=== PATIENT | female | born 1965 | race Caucasian/White ===

== ENCOUNTER 2022-10-28 06:49 | Emergency (ER) | payer SELFPAY ==
--- NOTE | 2022-10-28 07:43 | ERPHSYRPT ---
- History of Present Illness Time Seen by Provider: 10/28/22 07:20 Historian: patient, family Patient Subjective Stated Complaint: Pt states "when I got up to pee at about 0300 it started and feels like someone shoved a metal poker up my butt. I ate something to keep from throwing up". Reports having stones in the past, usually passes on own, not needed ER intervention in several years. Hospitalized once but ended up passing. Triage Nursing Assessment: Reports having stones in the past, usually passes on own, not needed ER intervention in several years. Hospitalized once but ended up passing. ambulated to room 6 independently after denying need to urinate for lab sample. resp even and unlabored, alert and oriented times three and able to speak in complete sentences. restless with frequent position changes to reduce pain Physician History: This is an obese 57-year-old white female who presents with sudden onset of right flank pain that is sharp and stabbing that radiates down into her right groin. Patient has a history of nephrolithiasis and ureterolithiasis in the distant past. She denies chest pain. She denies shortness of breath. She has no significant abdominal pain. Patient presents to the emergency department room pacing back and forth holding her right flank. She has not had any vomiting or diarrhea symptoms. She has not had a fever. Patient is not on any anticoagulation therapy. She does not have a local urologist Timing/Duration: today Activities at Onset: none Quality: sharpness, stabbing Abdominal Pain Onset Location: flank (Right) Pain Radiation: groin (Right) Severity of Pain-Max: moderate Severity of Pain-Current: moderate Modifying Factors: Improves With: nothing Associated Symptoms: denies symptoms Previous symptoms: same symptoms as today (In the distant past), no recent treatment Allergies/Adverse Reactions: levofloxacin [From Levaquin] Allergy (Verified 10/28/22 07:16) Sulfa (Sulfonamide Antibiotics) Allergy (Verified 10/28/22 07:16) Home Medications: No Reportable Medications [No Reported Medications] 10/28/22 [History] Hx Tetanus, Diphtheria Vaccination/Date Given: No (2015) Hx Influenza Vaccination/Date Given: Yes Hx Pneumococcal Vaccination/Date Given: No Immunizations Up to Date: Yes Travel Risk - International Travel Have you traveled outside of the country in past 3 weeks: No - Coronavirus Screening Are you exhibiting any of the following symptoms?: No Close contact with a COVID-19 positive Pt in past 14-21 Days: No - Vaccine Status Have you recieved a Covid-19 vaccination: Yes Transition Rn: [facility] - Vaccination Dates Date of 2cond Vaccination (if applicable): 2021 - Review of Systems Constitutional: No Symptoms Eyes: No Symptoms Ears, Nose, & Throat: No Symptoms Respiratory: No Symptoms Cardiac: No Symptoms Abdominal/Gastrointestinal: No Symptoms Genitourinary Symptoms: Flank Pain (Right) Musculoskeletal: No Symptoms Skin: No Symptoms Neurological: No Symptoms Psychological: No Symptoms Endocrine: No Symptoms Hematologic/Lymphatic: No Symptoms Immunological/Allergic: No Symptoms All Other Systems: Reviewed and Negative - Past Medical History Pertinent Past Medical History: Yes Neurological History: No Pertinent History ENT History: No Pertinent History Cardiac History: Other Respiratory History: Other Endocrine Medical History: No Pertinent History Musculoskeletal History: No Pertinent History GI Medical History: No Pertinent History History: Other Psycho-Social History: No Pertinent History Female Reproductive Disorders: No Pertinent History Other Medical History: histoplasmosis of lung, 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 right foot surgery for toe "locking" - Social History Smoking Status: Never smoker Exposure to second hand smoke: No Drug Use: none Patient Lives Alone: No - Nursing Vital Signs Nursing Vital Signs: Initial Vital Signs Temperature 96.9 F 10/28/22 07:02 Pulse Rate 87 10/28/22 07:02 Respiratory Rate 22 10/28/22 07:02 Blood Pressure 126/104 10/28/22 07:02 O2 Sat by Pulse Oximetry 100 10/28/22 07:02 Pain Scale Pain Intensity 3 - Physical Exam General Appearance: mild distress, alert, anxiety, obese Eye Exam: PERRL/EOMI, eyes nml inspection Ears, Nose, Throat Exam: normal ENT inspection, moist mucous membranes Neck Exam: normal inspection, non-tender, supple, full range of motion Respiratory Exam: normal breath sounds, lungs clear, airway intact, No chest tenderness, No respiratory distress Cardiovascular Exam: regular rate/rhythm, normal heart sounds, normal peripheral pulses Gastrointestinal/Abdomen Exam: soft, normal bowel sounds, No tenderness Pelvic Exam: not done Rectal Exam: not done Back Exam: normal inspection, normal range of motion, CVA tenderness (Right), No vertebral tenderness Extremity Exam: normal inspection, normal range of motion, pelvis stable Neurologic Exam: alert, oriented x 3, cooperative, 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, normal mood/affect, nml cerebellar function, nml station & gait, sensation nml Skin Exam: normal color, warm, dry Lymphatic Exam: No adenopathy SpO2 Interpretation: normal SpO2: 100 O2 Delivery: Room Air - Course Nursing assessment & vital signs reviewed: Yes Ordered Tests: Active Orders 24 hr Category Date Time Status IV Insertion STAT Care 10/28/22 07:44 Active ABDOMEN AND PELVIS W/0 CONTRAS [CT] Stat Exams 10/28/22 07:44 Completed AMYLASE Stat Lab 10/28/22 07:48 Completed CBC W DIFF Stat Lab 10/28/22 07:48 Completed CMP Stat Lab 10/28/22 07:48 Completed LIPASE Stat Lab 10/28/22 07:48 Completed UA W/RFX UR CULTURE Stat Lab 10/28/22 07:48 Completed Medication Summary Discontinued Medications Generic Name Dose Route Start Last Admin Trade Name Freq PRN Reason Stop Dose Admin Hydromorphone HCl 1 mg 10/28/22 07:44 10/28/22 07:57 Hydromorphone 1 Mg/1ml Inj 1 Mg/Ml Syringe IV 10/28/22 07:45 1 mg STAT ONE Administration Hydromorphone HCl Confirm 10/28/22 07:51 Hydromorphone 1 Mg/1ml Inj 1 Mg/Ml Syringe Administered 10/28/22 07:52 Dose 1 mg .ROUTE .STK-MED ONE Sodium Chloride 1,000 mls @ 999 mls/hr 10/28/22 07:44 10/28/22 08:53 Sodium Chloride 0.9% 1000 Ml IV 10/28/22 08:44 Infused .Q1H1M STA Infusion Sodium Chloride Confirm 10/28/22 07:51 Sodium Chloride 0.9% 1000 Ml Administered 10/28/22 07:52 Dose 1,000 mls @ ud .ROUTE .STK-MED ONE Ketorolac Tromethamine 30 mg 10/28/22 07:44 10/28/22 07:56 Ketorolac Tromethamine 30 Mg/Ml Inj IV 10/28/22 07:45 30 mg STAT ONE Administration Ketorolac Tromethamine Confirm 10/28/22 07:51 Ketorolac Tromethamine 30 Mg/Ml Inj Administered 10/28/22 07:52 Dose 30 mg .ROUTE .STK-MED ONE Ondansetron HCl 4 mg 10/28/22 07:44 10/28/22 07:56 Ondansetron Hcl 4 Mg/2 Ml Vial IV 10/28/22 07:45 4 mg STAT ONE Administration Ondansetron HCl Confirm 10/28/22 07:50 Ondansetron Hcl 4 Mg/2 Ml Vial Administered 10/28/22 07:51 Dose 4 mg .ROUTE .STK-MED ONE Lab/Rad Data: Laboratory Result Diagrams 10/28/22 07:48 10/28/22 07:48 Laboratory Results 10/28/22 10/28/22 10/28/22 Range/Units 07:48 07:48 07:48 WBC 7.4 (4.0-10.5) x10^3/uL RBC 4.80 (4.1-5.4) x10^6/uL Hgb 13.6 (12.0-16.0) g/dL Hct 42.7 (35-47) % MCV 89.0 (78-100) fL MCH 28.3 (26-32) pg MCHC 31.9 L (32-36) g/dL RDW 13.3 (11.5-14.0) % Plt Count 316 (150-450) x10^3/uL MPV 11.0 (7.5-11.0) fL Gran % 58.3 (36.0-66.0) % Immature Gran % (Auto) 0.1 (0.00-0.4) % Nucleat RBC Rel Count 0.0 (0.00-0.1) % Eos # (Auto) 0.13 (0-0.5) x10^3/uL Immature Gran # (Auto) 0.01 (0.00-0.03) x10^3u/L Absolute Lymphs (auto) 2.22 (1.0-4.6) x10^3/uL Absolute Monos (auto) 0.63 (0.0-1.3) x10^3/uL Absolute Nucleated RBC 0.00 (0.00-0.01) x10^3u/L Lymphocytes % 30.1 (24.0-44.0) % Monocytes % 8.5 (0.0-12.0) % Eosinophils % 1.8 (0.00-5.0) % Basophils % 1.2 (0.0-0.4) % Absolute Granulocytes 4.30 (1.4-6.9) x10^3/uL Basophils # 0.09 (0-0.4) x10^3/uL Sodium 142 (137-145) mmol/L Potassium 3.8 (3.5-5.1) mmol/L Chloride 102 (98-107) mmol/L Carbon Dioxide 30 (22-30) mmol/L Anion Gap 14.0 (5-15) MEQ/L BUN 16 (7-17) mg/dL Creatinine 0.85 (0.52-1.04) mg/dL Estimated GFR > 60.0 ML/MIN Glucose 97 (74-106) mg/dL Calcium 9.4 (8.4-10.2) mg/dL Total Bilirubin 0.40 (0.2-1.3) mg/dL AST 29 (14-36) U/L ALT 27 (0-35) U/L Alkaline Phosphatase 107 (38-126) U/L Serum Total Protein 7.5 (6.3-8.2) g/dL Albumin 4.4 (3.5-5.0) g/dL Amylase 83 (30-110) U/L Lipase 86 (23-300) U/L Urine Color Yellow (Yellow) Urine Appearance Clear (Clear) Urine pH 8.0 (4.6-8.0) Ur Specific Prim 1.010 (1.005-1.030) Urine Protein Negative (Negative) Urine Glucose (UA) Negative (Negative) mg/dL Urine Ketones Negative (Negative) Urine Blood Negative (Negative) Urine Nitrite Negative (Negative) Urine Bilirubin Negative (Negative) Urine Urobilinogen 0.2 (0.2) mg/dL Ur Leukocyte Esterase Negative (Negative) U Hyaline Cast (Auto) NONE SEEN (0-2) /LPF Urine Microscopic RBC 0-2 (0-5) /HPF Urine Microscopic WBC 0-2 (0-5) /HPF Ur Epithelial Cells None Seen (None Seen) /HPF Urine Bacteria None Seen (None Seen) /HPF Urine Culture Reflexed NO (NO) - Progress Progress: improved, re-examined Progress Note: 10/28/22 09:04 CT scan of the abdomen pelvis without contrast shows a 4 mm urinary bladder calculus adjacent to the right UVJ. There is mild right hydronephrosis and mild right hydroureter. This is consistent with recent passage of a ureteral calculus on the right side. This patient's medical issue is of moderate complexity. The level of complexity and work-up is based on review of the patient's past medical history, medi cation list, and drug allergy list as well as a history of present illness and physical findings on examination. Work-up included placement of intravenous line, infusion of normal saline solution, antiemetic, narcotic Dilaudid, intravenous Toradol. Symptoms significantly improved. We also obtained a urinalysis, CBC, CMP, amylase and lipase level and a CAT scan of the abdomen pelvis without contrast. I reviewed the results of the studies. The results of the study show a recently passed urinary bladder calculus. The discharge plan was discussed with the patient and her spouse. This includes oral liquid intake, use of Tylenol and ibuprofen for pain control. Counseled pt/family regarding: lab results, diagnosis, need for follow-up, rad results Medical Desision Making - Independent Historian Additional History obtained from: Spouse - Discussion of managment Reviewed:: Test results Agreed on:: Treatment plan, need for follow-up - Diagnostic Testing Diagnostic test were ordered, analyzed, and reviewed by me: Yes Radiological Interpretation: Reviewed by me - Departure Departure Disposition: Home Clinical Impression: Urinary bladder calculus Condition: Stable Critical Care Time: No Referrals: DOCTOR,NO FAMILY [Primary Care Provider] - Follow up/PCP as directed Additional Instructions: Drink plenty of clear liquids. Use Tylenol and ibuprofen for pain and fever control. Follow-up with your primary care provider for further evaluation management.
[2022-10-28] MEDS ORDERED: Sodium Chloride 0.9% 1000 ML 1,000 ML IV STA (07:44)
[2022-10-28] MEDS ORDERED: TORAdol 30 mg Injection IV ONE (07:44)
[2022-10-28] MEDS ORDERED: Hydromorphone 1 mg/ml Injection IV ONE (07:44)
[2022-10-28] MEDS ORDERED: Zofran 4 MG/2 ML VIAL IV ONE (07:44)
[2022-10-28] MEDS ORDERED: Zofran 4 MG/2 ML VIAL ONE (07:50)
[2022-10-28] MEDS ORDERED: Sodium Chloride 0.9% 1000 ML 1,000 ML ONE (07:51)
[2022-10-28] MEDS ORDERED: TORAdol 30 mg Injection ONE (07:51)
[2022-10-28] MEDS ORDERED: Hydromorphone 1 mg/ml Injection ONE (07:51)
[2022-10-28 08:06] LABS: BASOPHIL % 1.2 % (0.0-0.4); Basophil (Absolute #) 0.09 x10^3/uL (0-0.4); Eosinophil % 1.8 % (0.00-5.0); Eosinophil (Absolute #) 0.13 x10^3/uL (0-0.5); Hematocrit 42.7 % (35-47); Hemoglobin 13.6 g/dL (12.0-16.0); IMMATURE GRAN # 0.01 x10^3u/L (0.00-0.03); IMMATURE GRAN % 0.1 % (0.00-0.4); Lymphocyte (Absolute #) 2.22 x10^3/uL (1.0-4.6); Lymphocytes % 30.1 % (24.0-44.0); Mean Corpuscular Hemoglobin 28.3 pg (26-32); Mean Corpuscular Hgb Concent. 31.9 g/dL (32-36); Monocyte (Absolute #) 0.63 x10^3/uL (0.0-1.3); Monocytes % 8.5 % (0.0-12.0); Neutrophil % 58.3 % (36.0-66.0); Platelet Count 316 x10^3/uL (150-450); Red Cell Distribution Width 13.3 % (11.5-14.0); White Blood Count 7.4 x10^3/uL (4.0-10.5)
[2022-10-28 08:11] LABS: Appearance Clear (Clear); Bacteria None Seen /HPF (None Seen); Bilirubin Negative (Negative); Blood Negative (Negative); Epithelial Cells None Seen /HPF (None Seen); Glucose, Urine Negative (Negative); Hyaline Casts NONE SEEN /LPF (0-2); Ketones Negative (Negative); Leukocyte Esterase Negative (Negative); Nitrite Negative (Negative); Protein,Urine Dip Negative (Negative); RBC 0-2 /HPF (0-5); Urobilinogen 0.2 mg/dL (0.2); WBC 0-2 /HPF (0-5)
[2022-10-28 08:12] LABS: ADD URINE CULTURE? NO (NO)
[2022-10-28 08:27] LABS: ALBUMIN 4.4 g/dL (3.5-5.0); ALKALINE PHOSPHATASE 107 U/L (38-126); AMYLASE 83 U/L (30-110); BLOOD UREA NITROGEN 16 mg/dL (7-17); CHLORIDE 102 mmol/L (98-107); Calcium 9.4 mg/dL (8.4-10.2); Carbon Dioxide 30 mmol/L (22-30); Creatinine 1 0.85 mg/dL (0.52-1.04); EST GLOMERULAR FILTRATION RATE > 60.0 ML/MIN; Glucose 97 mg/dL (74-106); LIPASE 86 U/L (23-300); Potassium 3.8 mmol/L (3.5-5.1); SGOT/AST 29 U/L (14-36); SGPT/ALT 27 U/L (0-35); SODIUM 142 mmol/L (137-145); Total Protein 7.5 g/dL (6.3-8.2)
--- NOTE | 2022-10-28 08:46 | XRAY ---
Indication: Right flank pain. History renal stone. Multiple contiguous axial images obtained through the abdomen and pelvis without contrast using renal stone protocol. Comparison: None Lung bases demonstrate medial right base postsurgical changes. No infiltrate or effusion. Heart not enlarged. Posterior urinary bladder demonstrates 4 mm calculus adjacent to the right UVJ. Mild right-sided hydronephrosis and minimal hydroureter consistent with recent passage of calculus. Right kidney demonstrates 2 and left kidney demonstrate 1 punctate calculi. No free fluid/air. Noncontrasted stomach and bowel loops appear nonobstructed. Normal appearing appendix with 4 mm appendicolith. Inferior right lobe liver demonstrate 1.6 cm hepatic cyst versus hemangioma. Remaining liver, gallbladder, pancreas, spleen, adrenal glands, kidneys, ureters, bladder, uterus, and aorta are unremarkable for noncontrast exam. Osseous structures intact with minimal degenerative changes throughout the spine and minimal dextroscoliosis. Impression: 1. 4 mm urinary bladder calculus adjacent to right UVJ. Mild right hydronephrosis and minimal hydroureter consistent with recent passage of calculus. Additional bilateral renal punctate calculi. 2. Incidental appendicolith without appendicitis, hepatic cyst/hemangioma, and chronic bony findings.
[2022-10-28 09:05] VITALS: BP 116/86; PULSE 71
[2022-10-28 09:08] VITALS: O2SAT 100
== END 2022-10-28 09:25 | disposition home or self-care (01) ==
LOC: ED 06:49
DX: N21.0 Calculus in bladder (principal); N13.30 Unspecified hydronephrosis; R10.9 Unspecified abdominal pain
CPT/HCPCS: 36000; 36415; 74176; 80053; 81001; 82150; 83690; 85025; 96360; 96374; 96375; 99284; J1170; J1885; J2405

== ENCOUNTER 2025-06-19 11:18 | Emergency (ER) | payer OTHER ==
[2025-06-19 11:24] VITALS: TEMP 97.5
--- NOTE | 2025-06-19 11:32 | ERPHSYRPT ---
- History of Present Illness Time Seen by Provider: 06/19/25 11:21 Source: patient Exam Limitations: no limitations Patient Subjective Stated Complaint: Pt. states, "About 25 minutes ago, I fell and hit the ground, I landed on my right arm and my fist went into my chest. I'm having pain on the right side of my chest and after I got up and started walking it moved into my rt. upper back." Triage Nursing Assessment: Pt. brought to room in w/c , Crying and moaning in pain., Unable to walk d/t pain, A&Ox3, Skin P/W/D, Resp. even unlabored, No edema, Able to move all 4 ext. Physician History: 59-year-old female presents to the emergency room complaining of mid epigastric abdominal pain and back pain status post fall she reports she fell in her driveway about 30 minutes ago this was a trip over a planter mechanical fall denies any preceding chest pain or shortness of breath she reports she did not hit her head did not pass out she is able to move her arms and legs denies any pain there but show she does report pain in her mid epigastric abdomen that radiates to her back now in ED for further eval Occurred: just prior to arrival Reason for Fall: tripped Injuries/Pain Location: abdomen, back Loss of Consciousness: no loss of consciousness Quality: aching Severity of Pain-Max: mild Severity of Pain-Current: mild Modifying Factors: Improves With: nothing Associated Symptoms (Fall): abdominal pain, back pain Allergies/Adverse Reactions: levofloxacin [From Levaquin] Allergy (Verified 10/28/22 07:16) Sulfa (Sulfonamide Antibiotics) Allergy (Verified 10/28/22 07:16) Hx Tetanus, Diphtheria Vaccination/Date Given: No (2015) Hx Influenza Vaccination/Date Given: Yes Hx Pneumococcal Vaccination/Date Given: No Immunizations Up to Date: No Travel Risk - International Travel Have you traveled outside of the country in past 3 weeks: No - Emerging Infectious Disease Are you exhibiting symptoms associated with any current EIDs: No - Review of Systems Constitutional: No Fever, No Chills Eyes: No Symptoms Ears, Nose, & Throat: No Symptoms Respiratory: No Cough, No Dyspnea Cardiac: No Chest Pain, No Edema, No Syncope Abdominal/Gastrointestinal: Abdominal Pain, No Nausea, No Vomiting, No Diarrhea Genitourinary Symptoms: No Dysuria Musculoskeletal: Back Pain, No Neck Pain Skin: No Rash Neurological: No Dizziness, No Focal Weakness, No Sensory Changes Psychological: No Symptoms Endocrine: No Symptoms All Other Systems: Reviewed and Negative - Past Medical History Pertinent Past Medical History: Yes Neurological History: No Pertinent History ENT History: No Pertinent History Cardiac History: Other Respiratory History: Other Endocrine Medical History: No Pertinent History Musculoskeletal History: No Pertinent History GI Medical History: No Pertinent History History: Other Psycho-Social History: No Pertinent History Female Reproductive Disorders: No Pertinent History Other Medical History: histoplasmosis of lung, 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 right foot surgery for toe "locking" - Social History Smoking Status: Never smoker Exposure to second hand smoke: No Drug Use: none - Social Determinants of Health Will the patient participate in the screening: Declined to provide - Nursing Vital Signs Nursing Vital Signs: Initial Vital Signs Temperature 97.5 F 06/19/25 11:19 Pulse Rate 83 06/19/25 11:19 Respiratory Rate 24 06/19/25 11:19 Blood Pressure 148/87 06/19/25 11:19 O2 Sat by Pulse Oximetry 100 06/19/25 11:19 Pain Scale Pain Intensity 8 - Canones Coma Score Best Eye Response (Canones): (4) open spontaneously Best Verbal Response ([place]): (5) oriented Best Motor Response (Canones): (6) obeys commands Canones Total: 15 - Physical Exam General Appearance: no apparent distress, alert Head Injury: no evidence of injury Eye Exam: PERRL/EOMI ENT Exam: airway nml Neck Exam: normal inspection, No tenderness Respiratory/Chest Exam: normal breath sounds, No chest tenderness, No respiratory distress Cardiovascular Exam: normal heart sounds, regular rate/rhythm Gastrointestinal Exam: soft, No tenderness, No distention, No guarding, No ecchymosis Back Exam: normal inspection, No vertebral tenderness Extremity Exam: normal inspection, normal range of motion, pelvis stable, No deformities Neurologic Exam: alert, oriented x 3, cooperative, sensation nml, No motor deficits Skin Exam: normal color, warm, dry SpO2: 100 - Course Nursing assessment & vital signs reviewed: Yes Ordered Tests: Active Orders 24 hr Category Date Time Status ABDOMEN AND PELVIS W CONTRAST [CT] Stat Exams 06/19/25 11:29 Completed CHEST WITHOUT CONTRAST [CT] Stat Exams 06/19/25 12:20 Completed RECONSTRUCTION [CT] Stat Exams 06/19/25 11:29 Completed RECONSTRUCTION [CT] Stat Exams 06/19/25 11:29 Taken CBC W DIFF Stat Lab 06/19/25 11:37 Completed CMP Stat Lab 06/19/25 11:37 Completed Medication Summary Generic Name Dose Route Start Last Admin Trade Name Freq PRN Reason Stop Dose Admin Ondansetron HCl 4 mg 06/19/25 16:12 Ondansetron Hcl 4 Mg/2 Ml Vial IV 06/19/25 16:13 STAT ONE Discontinued Medications Generic Name Dose Route Start Last Admin Trade Name Freq PRN Reason Stop Dose Admin Hydromorphone HCl 0.5 mg 06/19/25 12:11 06/19/25 12:17 Hydromorphone 1 Mg/1ml Inj IV 06/19/25 12:12 0.5 mg STAT ONE Administration Hydromorphone HCl Confirm 06/19/25 12:13 Hydromorphone 1 Mg/1ml Inj Administered 06/19/25 12:14 Dose 1 mg .ROUTE .STK-MED ONE Hydromorphone HCl 1 mg 06/19/25 14:44 06/19/25 14:53 Hydromorphone 1 Mg/1ml Inj IV 06/19/25 14:45 1 mg STAT ONE Administration Hydromorphone HCl Confirm 06/19/25 14:47 Hydromorphone 1 Mg/1ml Inj Administered 06/19/25 14:48 Dose 1 mg .ROUTE .STK-MED ONE Sodium Chloride 1,000 mls @ 999 mls/hr 06/19/25 11:29 06/19/25 12:36 Sodium Chloride 0.9% 1000 Ml IV 06/19/25 12:29 Infused .Q1H1M STA Infusion Sodium Chloride Confirm 06/19/25 11:33 Sodium Chloride 0.9% 1000 Ml Administered 06/19/25 11:34 Dose 1,000 mls @ ud .ROUTE .STK-MED ONE Ketorolac Tromethamine Confirm 06/19/25 13:27 Ketorolac Tromethamine 30 Mg/Ml Inj Administered 06/19/25 13:28 Dose 30 mg .ROUTE .STK-MED ONE Ketorolac Tromethamine 30 mg 06/19/25 13:37 06/19/25 13:39 Ketorolac Tromethamine 30 Mg/Ml Inj IV 06/19/25 13:38 30 mg STAT ONE Administration Lidocaine 1 patch 06/19/25 14:54 06/19/25 15:27 Lidocaine Hcl 1 Patch Patch TOP 06/19/25 14:55 1 patch STAT ONE Administration Lorazepam 1 mg 06/19/25 12:17 06/19/25 12:20 Lorazepam 2 Mg/1 Ml 2 Mg Vial IV 06/19/25 12:18 1 mg STAT ONE Administration Lorazepam Confirm 06/19/25 12:19 Lorazepam 2 Mg/1 Ml 2 Mg Vial Administered 06/19/25 12:20 Dose 2 mg .ROUTE .STK-MED ONE Morphine Sulfate 2 mg 06/19/25 11:29 06/19/25 11:36 Morphine Sulfate 2 Mg/Ml Inj IV 06/19/25 11:30 2 mg STAT ONE Administration Morphine Sulfate Confirm 06/19/25 11:33 Morphine Sulfate 2 Mg/Ml Inj Administered 06/19/25 11:34 Dose 2 mg .ROUTE .STK-MED ONE Morphine Sulfate 2 mg 06/19/25 12:08 06/19/25 12:11 Morphine Sulfate 2 Mg/Ml Inj IV 06/19/25 12:09 2 mg STAT ONE Administration Morphine Sulfate Confirm 06/19/25 12:08 Morphine Sulfate 2 Mg/Ml Inj Administered 06/19/25 12:09 Dose 2 mg .ROUTE .STK-MED ONE Ondansetron HCl 4 mg 06/19/25 11:29 06/19/25 11:35 Ondansetron Hcl 4 Mg/2 Ml Vial IV 06/19/25 11:30 4 mg STAT ONE Administration Ondansetron HCl Confirm 06/19/25 11:33 Ondansetron Hcl 4 Mg/2 Ml Vial Administered 06/19/25 11:34 Dose 4 mg .ROUTE .STK-MED ONE Ondansetron HCl 4 mg 06/19/25 14:45 06/19/25 14:52 Ondansetron Hcl 4 Mg/2 Ml Vial IV 06/19/25 14:46 4 mg STAT ONE Administration Ondansetron HCl Confirm 06/19/25 14:46 Ondansetron Hcl 4 Mg/2 Ml Vial Administered 06/19/25 14:47 Dose 4 mg .ROUTE .STK-MED ONE Oxycodone/Acetaminophen 2 tab 06/19/25 16:11 Oxycodone Hcl/Apap 5 Mg/325 Mg Tablet PO 06/19/25 16:12 SENT HOME W/ PATIENT STA Lab/Rad Data: Laboratory Result Diagrams 06/19/25 11:37 06/19/25 11:37 Laboratory Results 06/19/25 06/19/25 Range/Units 11:37 11:37 WBC 9.7 (3.98-10.04) x10^3/uL RBC 5.08 (3.93-5.22) x10^6/uL Hgb 14.4 (11.2-15.7) g/dL Hct 44.5 (34.1-44.9) % MCV 87.6 (79.4-94.8) fL MCH 28.3 (25.6-32.2) pg MCHC 32.4 (32.2-35.5) g/dL RDW 13.2 (11.7-14.4) % Plt Count 285 (182-369) x10^3/uL MPV 10.3 (9.4-12.3) fL Gran % 46.7 (34.0-71.1) % Immature Gran % (Auto) 0.3 (0.001-0.429) % Nucleat RBC Rel Count 0.0 (0.00-0.2) % Eos # (Auto) 0.45 H (0.04-0.36) x10^3/uL Immature Gran # (Auto) 0.03 (0.001-0.031) x10^3u/L Absolute Lymphs (auto) 3.81 H (1.18-3.74) x10^3/uL Absolute Monos (auto) 0.76 (0.24-0.86) x10^3/uL Absolute Nucleated RBC 0.00 (0.00-0.012) x10^3u/L Lymphocytes % 39.4 (19.3-51.7) % Monocytes % 7.9 (4.7-12.5) % Eosinophils % 4.7 (0.7-5.8) % Basophils % 1.0 (0.1-1.2) % Absolute Granulocytes 4.51 (1.56-6.13) x10^3/uL Basophils # 0.10 H (0.01-0.08) x10^3/uL Sodium 138 (135-145) mmol/L Potassium 3.4 L (3.5-5.1) mmol/L Chloride 101 (98-107) mmol/L Carbon Dioxide 27 (22-30) mmol/L Anion Gap 13.2 (5-15) MEQ/L BUN 14 (7-17) mg/dL Creatinine 0.84 (0.52-1.04) mg/dL Estimated GFR 80.0 ML/MIN Glucose 107 H (74-106) mg/dL Calcium 9.1 (8.4-10.2) mg/dL Total Bilirubin 0.60 (0.2-1.3) mg/dL AST 67 H (14-36) U/L ALT 51 H (0-35) U/L Alkaline Phosphatase 111 (38-126) U/L Serum Total Protein 8.0 (6.3-8.2) g/dL Albumin 4.7 (3.5-5.0) g/dL - Progress Progress Note: 06/19/25 14:52 Comparison: October 28, 2022. CT chest reported separately. Noncontrasted stomach and bowel loops appear nonobstructed with normal appendix. New 3.8 x 2.5 cm irregular noncalcified right adrenal gland mass. Partial differential offered for adrenal adenoma, metastasis, lymphoma, and pheochromocytoma. Liver again demonstrates a few tiny cysts, largest in left lobe measuring 1 cm. Stable nonobstructing left renal punctate calculus. No free fluid/air. Remaining liver, gallbladder, pancreas, spleen, left adrenal gland, kidneys, ureters, bladder, and uterus are unremarkable. Again very minimal aortoiliac calcifications. No AAA or pathologic retroperitoneal lymphadenopathy. Osseous structures intact again with minimal degenerative changes throughout spine and minimal dextroscoliosis unchanged. Impression: 1. New 3.8 x 2.5 cm noncalcified right adrenal gland mass. Partial differential offered for adrenal adenoma, metastasis, lymphoma, and pheochromocytoma. Noncontrast CT exam could be help confirm if mass is a lipid rich adrenal adenoma. 2. Chronic findings including tiny hepatic cysts, nonobstructing left renal punctate calculus, multilevel degenerative spondylosis, and dextroscoliosis. 3. Remaining CT abdomen/pelvis with contrast exam is negative. 06/19/25 14:53 Multiple contiguous axial images obtained through the chest without contrast. Comparison: None Lungs inflated with tiny right lower lobe calcified granuloma and minimal right lower lobe fibrosis/scarring. Remaining lungs clear. Heart not enlarged. Aorta is normal in course and caliber. Tiny mediastinal/distal paraesophageal and small right hilar calcified nodes. No pathologic mediastinal lymphadenopathy. Bony thorax intact with minimal multilevel thoracic spondylosis. CT abdomen/pelvis reported separately. Impression: Chronic findings including right lower lobe fibrosis/scarring, multilevel thoracic degenerative spondylosis, and old granulomatous disease. Remaining CT chest without contrast exam is normal. 06/19/25 15:00 Sagittal, coronal, and axial reformatted images lumbar spine obtained using raw data from same-day CT abdomen/pelvis exam. Comparison: CT abdomen/pelvis October 27, 2022. Again minimal multilevel lumbar degenerative spondylosis and minimal dextroscoliosis. No acute fracture, subluxation, or spinal canal stenosis. CT abdomen/pelvis reported separately. Impression: Again chronic findings including multilevel lumbar degenerative spondylosis and minimal dextroscoliosis. No acute findings. 06/19/25 15:56 Thoracic spine shows chronic findings including right lower lobe fibrosis scarring multilevel thoracic degenerative spondylolysis and old granulomatosis disease 06/19/25 15:57 Patient was informed about the right adrenal gland mass was advised that she needs to follow-up for her degenerative back disease patient was given muscle relaxers for home as well as a prescription of tramadol recommend she have postterm precautions patient is able to ambulate and able to urinate at this time patient be discharged - Departure Departure Disposition: Home Clinical Impression: Adrenal mass Chest wall contusion Qualifiers: Encounter type: initial encounter Laterality: unspecified laterality Qualified Code(s): S20.219A - Contusion of unspecified front wall of thorax, initial encounter Degenerative joint disease (DJD) of lumbar spine Qualifiers: Spinal osteoarthritis complication: unspecified spinal osteoarthritis Qualified Code(s): M47.816 - Spondylosis without myelopathy or radiculopathy, lumbar region Condition: Stable Critical Care Time: No Referrals: DOCTOR,NO FAMILY [NON-STAFF PHY W/O PRIVILEGES, UNKNOWN] - Follow up/PCP as directed Instructions: Lumbar spinal stenosis, Osteoarthritis, Contusion (DC), Preventing falls in adults Prescriptions: Cyclobenzaprine HCl 10 mg [Cyclobenzaprine 10 MG] 10 mg PO QHS #7 tablet Ondansetron ODT 4 MG [Zofran Odt 4 mg] 4 mg PO Q6HPRN PRN #7 tab PRN Reason: Nausea
[2025-06-19] MEDS ORDERED: MORPHINE SULFATE 2 MG INJ ONE ×2 (11:33→12:08)
[2025-06-19] MEDS ORDERED: Zofran 4 MG/2 ML VIAL ONE ×2 (11:33→14:46)
[2025-06-19] MEDS: Zofran 4 MG/2 ML VIAL IV ONE ×3 (11:35→16:32)
[2025-06-19] MEDS: MORPHINE SULFATE 2 MG INJ IV ONE ×2 (11:36→12:11)
[2025-06-19 11:45] LABS: BASOPHIL % 1.0 % (0.1-1.2); Basophil (Absolute #) 0.10 x10^3/uL (0.01-0.08); Eosinophil (Absolute #) 0.45 x10^3/uL (0.04-0.36); Hematocrit 44.5 % (34.1-44.9); Hemoglobin 14.4 g/dL (11.2-15.7); IMMATURE GRAN # 0.03 x10^3u/L (0.001-0.031); IMMATURE GRAN % 0.3 % (0.001-0.429); Lymphocyte (Absolute #) 3.81 x10^3/uL (1.18-3.74); Mean Corpuscular Hemoglobin 28.3 pg (25.6-32.2); Mean Corpuscular Hgb Concent. 32.4 g/dL (32.2-35.5); Monocyte (Absolute #) 0.76 x10^3/uL (0.24-0.86); NUCLEATED RBC # 0.00 x10^3u/L (0.00-0.012); NUCLEATED RBC % 0.0 % (0.00-0.2); Platelet Count 285 x10^3/uL (182-369); Red Blood Count 5.08 x10^6/uL (3.93-5.22); White Blood Count 9.7 x10^3/uL (3.98-10.04)
[2025-06-19 11:58] LABS: Calcium 9.1 mg/dL (8.4-10.2); Carbon Dioxide 27.0 mmol/L (22-30); Creatinine 1 0.84 mg/dL (0.52-1.04); EST GLOMERULAR FILTRATION RATE 80.0 ML/MIN; Glucose 107.0 mg/dL (74-106); Potassium 3.4 mmol/L (3.5-5.1); SGOT/AST 67.0 U/L (14-36); SGPT/ALT 51.0 U/L (0-35); Total Protein 8.0 g/dL (6.3-8.2)
[2025-06-19] MEDS ORDERED: Hydromorphone 1 mg/ml Injection ONE ×2 (12:13→14:47)
[2025-06-19] MEDS: Hydromorphone 1 mg/ml Injection IV ONE ×2 (12:17→14:53)
[2025-06-19] MEDS ORDERED: Ativan 2 MG/1 ML VIAL ONE (12:19)
[2025-06-19] MEDS: Ativan 2 MG/1 ML VIAL IV ONE (12:20)
[2025-06-19] MEDS ORDERED: TORAdol 30 mg Injection ONE (13:27)
[2025-06-19] MEDS: TORAdol 30 mg Injection IV ONE (13:39)
[2025-06-19 14:05] VITALS: RESP 18
--- NOTE | 2025-06-19 14:35 | XRAY ---
Indication: Trauma fall. Multiple contiguous axial images obtained through the chest without contrast. Comparison: None Lungs inflated with tiny right lower lobe calcified granuloma and minimal right lower lobe fibrosis/scarring. Remaining lungs clear. Heart not enlarged. Aorta is normal in course and caliber. Tiny mediastinal/distal paraesophageal and small right hilar calcified nodes. No pathologic mediastinal lymphadenopathy. Bony thorax intact with minimal multilevel thoracic spondylosis. CT abdomen/pelvis reported separately. Impression: Chronic findings including right lower lobe fibrosis/scarring, multilevel thoracic degenerative spondylosis, and old granulomatous disease. Remaining CT chest without contrast exam is normal.
--- NOTE | 2025-06-19 14:49 | XRAY ---
Indication: Trauma fall. Multiple contiguous axial images obtained through the abdomen and pelvis using 80 cc Isovue 370 contrast. Comparison: October 28, 2022. CT chest reported separately. Noncontrasted stomach and bowel loops appear nonobstructed with normal appendix. New 3.8 x 2.5 cm irregular noncalcified right adrenal gland mass. Partial differential offered for adrenal adenoma, metastasis, lymphoma, and pheochromocytoma. Liver again demonstrates a few tiny cysts, largest in left lobe measuring 1 cm. Stable nonobstructing left renal punctate calculus. No free fluid/air. Remaining liver, gallbladder, pancreas, spleen, left adrenal gland, kidneys, ureters, bladder, and uterus are unremarkable. Again very minimal aortoiliac calcifications. No AAA or pathologic retroperitoneal lymphadenopathy. Osseous structures intact again with minimal degenerative changes throughout spine and minimal dextroscoliosis unchanged. Impression: 1. New 3.8 x 2.5 cm noncalcified right adrenal gland mass. Partial differential offered for adrenal adenoma, metastasis, lymphoma, and pheochromocytoma. Noncontrast CT exam could be help confirm if mass is a lipid rich adrenal adenoma. 2. Chronic findings including tiny hepatic cysts, nonobstructing left renal punctate calculus, multilevel degenerative spondylosis, and dextroscoliosis. 3. Remaining CT abdomen/pelvis with contrast exam is negative.
[2025-06-19 14:53] VITALS: O2SAT 100
--- NOTE | 2025-06-19 14:53 | XRAY ---
Indication: Trauma fall. Sagittal, coronal, and axial reformatted images lumbar spine obtained using raw data from same-day CT abdomen/pelvis exam. Comparison: CT abdomen/pelvis October 27, 2022. Again minimal multilevel lumbar degenerative spondylosis and minimal dextroscoliosis. No acute fracture, subluxation, or spinal canal stenosis. CT abdomen/pelvis reported separately. Impression: Again chronic findings including multilevel lumbar degenerative spondylosis and minimal dextroscoliosis. No acute findings.
[2025-06-19 15:18] VITALS: BP 110/66
[2025-06-19] MEDS: Lidoderm Patch 5% TOP ONE (15:27)
[2025-06-19 16:15] VITALS: PULSE 68
[2025-06-19] MEDS ORDERED: PERCOCET TABLET 5/325MG ONE (16:20)
[2025-06-19] MEDS ORDERED: ZOFRAN ODT 4 MG ONE (16:20)
[2025-06-19] MEDS: ZOFRAN ODT 4 MG PO ONE (16:21)
[2025-06-19] MEDS: PERCOCET TABLET 5/325MG PO STA (16:21)
--- NOTE | 2025-06-20 10:32 | XRAY ---
Indication: Trauma fall. Sagittal, coronal, and axial reformatted images thoracic spine using raw data from same-day CT chest exam. Comparison: None There is minimal multilevel degenerative spondylosis, minimal right lower lobe fibrosis/scarring, and tiny mediastinal/distal paraesophageal/right hilar/right lower lobe calcified granulomas already reported on same day CT chest exam. No new/acute findings. Impression: Chronic findings including right lower lobe fibrosis/scarring, multilevel thoracic degenerative spondylosis, and old granulomatous disease I reported on same day CT chest exam. Remaining CT thoracic spine is normal.
== END 2025-06-19 16:47 | disposition home or self-care (01) ==
LOC: ED 11:18
DX: E27.8 Other specified disorders of adrenal gland (principal); S20.219A Contusion of unspecified front wall of thorax, initial encounter; W01.0XXA Fall on same level from slipping, tripping and stumbling without subsequent striking against object, initial encounter; Y92.007 Garden or yard of unspecified non-institutional (private) residence as the place of occurrence of the external cause; M47.816 Spondylosis without myelopathy or radiculopathy, lumbar region; Z79.899 Other long term (current) drug therapy

== ENCOUNTER 2025-06-20 17:53 | Emergency (ER) | payer OTHER ==
--- NOTE | 2025-06-20 18:28 | ERPHSYRPT ---
- History of Present Illness Time Seen by Provider: 06/20/25 18:27 Source: patient, family Exam Limitations: no limitations Physician History: This is a 59-year-old white female patient brought to the emergency room by private vehicle secondary to inadequate pain control. Patient had an extensive, thorough workup after a fall that occurred yesterday in her driveway. I reviewed the reports of the CT scan of the abdomen pelvis and CT scan of the chest, both with contrast and these were negative. Patient was given a prescription for Flexeril at home. She is to take 10 mg orally nightly. She states that the last dose of her Flexeril was at noon today. Patient states the pain control is inadequate and is here because of the right sided chest pain she is experiencing. Patient has not had a cough. Patient has not had a fever. Timing/Duration: yesterday Severity: moderate Modifying Factors: Improves With: movement Associated Symptoms: chest pain (Right side. States she feels as though there is something sitting on her right chest) Allergies/Adverse Reactions: levofloxacin [From Levaquin] Allergy (Verified 06/20/25 18:55) Sulfa (Sulfonamide Antibiotics) Allergy (Verified 06/20/25 18:55) Home Medications: Aspirin 81 gm Chew [Baby Aspirin 81 mg Chew] 81 mg PO DAILY 06/20/25 [History] Metoprolol Tartrate 25 mg [Lopressor 25MG Tab] 25 mg PO DAILY 06/20/25 [History] Hx Tetanus, Diphtheria Vaccination/Date Given: No (2015) Hx Influenza Vaccination/Date Given: Yes Hx Pneumococcal Vaccination/Date Given: No Travel Risk - International Travel Have you traveled outside of the country in past 3 weeks: No - Emerging Infectious Disease Are you exhibiting symptoms associated with any current EIDs: No - Review of Systems Constitutional: No Symptoms Eyes: No Symptoms Ears, Nose, & Throat: No Symptoms Respiratory: No Symptoms Cardiac: Chest Pain (Right side) Abdominal/Gastrointestinal: No Symptoms Genitourinary Symptoms: No Symptoms Musculoskeletal: No Symptoms Skin: No Symptoms Neurological: No Symptoms Psychological: No Symptoms Endocrine: No Symptoms Hematologic/Lymphatic: No Symptoms Immunological/Allergic: No Symptoms All Other Systems: Reviewed and Negative - Past Medical History Pertinent Past Medical History: Yes Neurological History: No Pertinent History ENT History: No Pertinent History Cardiac History: Other Respiratory History: Other Endocrine Medical History: No Pertinent History Musculoskeletal History: No Pertinent History GI Medical History: No Pertinent History History: Other Psycho-Social History: No Pertinent History Female Reproductive Disorders: No Pertinent History Other Medical History: histoplasmosis of lung, 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 right foot surgery for toe "locking" - Social History Smoking Status: Never smoker Exposure to second hand smoke: No Drug Use: none - Social Determinants of Health Will the patient participate in the screening: Declined to provide - Nursing Vital Signs Nursing Vital Signs: Initial Vital Signs Temperature 97 F 06/20/25 17:54 Pulse Rate 98 H 06/20/25 17:54 Respiratory Rate 16 06/20/25 17:54 Blood Pressure 146/82 06/20/25 17:54 O2 Sat by Pulse Oximetry 98 06/20/25 17:54 Pain Scale Pain Intensity 10 - Physical Exam General Appearance: no apparent distress, alert, anxiety Eye Exam: PERRL/EOMI, eyes nml inspection Ears, Nose, Throat Exam: normal ENT inspection, moist mucous membranes Neck Exam: normal inspection, non-tender, supple, full range of motion Respiratory Exam: normal breath sounds, chest tenderness (Right sided chest wall tenderness with ecchymosis present.), lungs clear, respiratory distress, airway intact Cardiovascular Exam: regular rate/rhythm, normal heart sounds, normal peripheral pulses Gastrointestinal/Abdomen Exam: soft, normal bowel sounds, No tenderness Pelvic Exam: not done Rectal Exam: not done Back Exam: normal inspection, normal range of motion, No CVA tenderness, No vertebral tenderness Extremity Exam: normal inspection, normal range of motion, pelvis stable Neurologic Exam: alert, oriented x 3, cooperative, nurse orthopaedic II-XII nml as tested, normal mood/affect, nml cerebellar function, nml station & gait Skin Exam: ecchymosis (Right sided chest wall) Lymphatic Exam: No adenopathy SpO2 Interpretation: normal O2 Delivery: Room Air - Course Nursing assessment & vital signs reviewed: Yes EKG Interpreted by Me: RATE (78), Sinus Rhythm, NORMAL AXIS, NORMAL INTERVALS, NORMAL QRS, Other (QTc 427. No acute ischemia.) Ordered Tests: Active Orders 24 hr Category Date Time Status EKG-ER Only STAT Care 06/20/25 19:14 Completed TROPONIN Q4H Lab 06/20/25 19:00 Completed TROPONIN Q4H Lab 06/20/25 23:15 Ordered TROPONIN Q4H Lab 06/21/25 03:15 Ordered Medication Summary Discontinued Medications Generic Name Dose Route Start Last Admin Trade Name Halle PRN Reason Stop Dose Admin Orphenadrine Citrate 60 mg 06/20/25 19:14 06/20/25 19:34 Orphenadrine Citrate 60 Mg/2 Ml Vial IM 06/20/25 19:15 60 mg STAT ONE Administration Orphenadrine Citrate Confirm 06/20/25 19:32 Orphenadrine Citrate 60 Mg/2 Ml Vial Administered 06/20/25 19:33 Dose 60 mg .ROUTE .STK-MED ONE Oxycodone/Acetaminophen 1 tab 06/20/25 19:15 06/20/25 19:33 Oxycodone Hcl/Apap 5 Mg/325 Mg Tablet PO 06/20/25 19:16 1 tab STAT STA Administration Oxycodone/Acetaminophen Confirm 06/20/25 19:32 Oxycodone Hcl/Apap 5 Mg/325 Mg Tablet Administered 06/20/25 19:33 Dose 1 tab .ROUTE .STK-MED ONE Lab/Rad Data: Laboratory Results 06/20/25 Range/Units 19:00 Troponin I < 0.012 (0.000-0.033) ng/mL - Progress Progress: improved, pain not gone completely, re-examined Progress Note: 06/20/25 20:11 My medical decision making and the assignment of low to moderate complexity of this patient's medical issue today is based on review of the patient's past me dical history, reviewed patient's medication list, reviewed patient drug allergy list, history of present illness, physical findings on examination. Workup in this patient includes twelve-lead EKG and troponin level. Differential diagnosis includes muscle skeletal pain, inadequate pain control, chest wall contusion and bruising Counseled pt/family regarding: lab results, diagnosis, need for follow-up Medical Desision Making - Diagnostic Testing Diagnostic test were ordered, analyzed, and reviewed by me: Yes - Risk of complications Low Risk: Low risk of morbidity from additional dx testing or treatment - Departure Departure Disposition: Home Clinical Impression: Chest wall contusion, Inadequate pain control Condition: Stable Critical Care Time: No Referrals: WARD ENGLE MD [Primary Care Provider, [facility]] - Follow up/PCP as directed Additional Instructions: Continue your Flexeril as prescribed. Take this new medication as prescribed. Call your prescribing provider on 06/23/2025, to make arrangements for follow-up appointment for further evaluation and management. Ice pack to tender areas 3 times a day for the next 3 days Prescriptions: Oxycodone HCl/Acetaminophen [Percocet 5-325 mg Tablet] 1 each PO Q12H PRN PRN #4 tablet MDD 2 PRN Reason: Moderate To Severe Pain
[2025-06-20 19:02] VITALS: TEMP 97
[2025-06-20] MEDS ORDERED: Norflex 60 MG/2 ML ONE (19:32)
[2025-06-20] MEDS ORDERED: PERCOCET TABLET 5/325MG ONE ×2 (19:32→20:14)
[2025-06-20] MEDS: PERCOCET TABLET 5/325MG PO STA ×2 (19:33→20:15)
[2025-06-20] MEDS: Norflex 60 MG/2 ML IM ONE (19:34)
[2025-06-20 20:19] VITALS: BP 124/74; PULSE 75; RESP 15; O2SAT 96
== END 2025-06-20 20:29 | disposition home or self-care (01) ==
LOC: ED 17:53
DX: S20.211A Contusion of right front wall of thorax, initial encounter (principal); W18.39XA Other fall on same level, initial encounter; Y92.007 Garden or yard of unspecified non-institutional (private) residence as the place of occurrence of the external cause; Z79.891 Long term (current) use of opiate analgesic; Z79.899 Other long term (current) drug therapy